=== PATIENT | male | born 1970 | race Caucasian/White ===

== ENCOUNTER 2017-11-29 13:48 | Emergency (ER) | payer BC ==
[2017-11-29] MEDS ORDERED: MORPHINE 4 MG/ML SYR ONE (14:36)
[2017-11-29] MEDS ORDERED: ONDANSETRON 4 MG/2 ML VIAL ONE (14:37)
--- NOTE | 2017-11-29 15:23 | RAD REPORT ---
EXAM DESCRIPTION: CT - Abdomen Pelvis W Contrast - 11/29/2017 3:02 pm CLINICAL HISTORY: Abdominal pain status post fall COMPARISON: none. TECHNIQUE: Computed axial tomography of the abdomen pelvis was obtained. 100 cc Isovue-300 was admin istered intravenously. Oral contrast was not requested which limits evaluation of bowel. All CT scans are performed using dose optimization technique as appropriate and may include automated exposure control or mA/KV adjustment according to patient size. FINDINGS: The liver, spleen, pancreas, adrenal and kidneys appear unremarkable. There is no evidence of diverticulitis. The appendix is normal Bilateral inguinal hernias contain fat. Small umbilical hernia is present. Avulsion fractures involve the left transverse processes of L1, L2, L3 and L4 IMPRESSION: Fractures involving the left transverse processes of L1, L2, L3 and L4
--- NOTE | 2017-11-29 15:36 | ER ---
Nurse's Notes [facility] Name: Morgan Walker Age: 47 yrs Sex: Male : 1970 Arrival Date: 11/29/2017 Time: 13:53 Bed 20 Private MD: Diagnosis: Fracture of first lumbar vertebra-transverse process;Fracture of fourth lumbar vertebra-transverse process;Fracture of second lumbar vertebra-transverse process;Fracture of third lumbar vertebra-transverse process Presentation: 11/29 13:56 Presenting complaint: Patient states: "I slipped on some steps and my back landed on aa5 the steps". Pt c/o left mid-lower back pain. Transition of care: patient was not received from another setting of care. Onset of symptoms was November 29, 2017. Risk Assessment: Do you want to hurt yourself or someone else? Patient reports no desire to harm self or others. Initial Sepsis Screen: Does the patient meet any 2 criteria? No. Patient's initial sepsis screen is negative. Does the patient have a suspected source of infection? No. Patient's initial sepsis screen is negative. Care prior to arrival: None. 13:56 Method Of Arrival: Ambulatory aa5 13:56 Acuity: BERTA 3 aa5 Historical: - Allergies: 13:58 No Known Allergies; aa5 - Home Meds: 13:58 Xarelto 20 mg oral tab 1 tab once daily [Active]; aa5 - PMHx: 13:58 DVT; aa5 - PSHx: 13:58 None; aa5 - Immunization history:: Adult Immunizations up to date. - Social history:: Smoking status: Patient/guardian denies using tobacco. - Ebola Screening: : No symptoms or risks identified at this time. Screenin:07 Abuse screen: Denies threats or abuse. Nutritional screening: No deficits noted. aa5 Tuberculosis screening: No symptoms or risk factors identified. Assessment: 14:00 General: Appears uncomfortable, Behavior is calm, cooperative. Pain: Complains of pain aa5 in left low back and left mid back Pain does not radiate. Pain currently is 5 out of 10 on a pain scale. Quality of pain is described as sharp, Is continuous, Aggravated by increased activity, repositioning. Neuro: Level of Consciousness is awake, alert, obeys commands, Oriented to person, place, time, situation. Cardiovascular: Heart tones S1 S2 present Rhythm is regular. Respiratory: Airway is patent Respiratory effort is even, unlabored, Respiratory pattern is regular, symmetrical. GI: No signs and/or symptoms were reported involving the gastrointestinal system. : No signs and/or symptoms were reported regarding the genitourinary system. EENT: No signs and/or symptoms were reported regarding the EENT system. Derm: Skin is pink, warm \\T\\ dry. Musculoskeletal: Range of motion: intact in all extremities. 15:21 Reassessment: Patient appears in no apparent distress at this time. Patient and/or em family updated on plan of care and expected duration. Pain level reassessed. Patient is alert, oriented x 3, equal unlabored respirations, skin warm/dry/pink. Vital Signs: 13:59 BP 117 / 79; Pulse 66; Resp 16 S; Temp 97.9(TE); Pulse Ox 100% on R/A; Weight 117.93 kg aa5 (R); Height 6 ft. 2 in. (187.96 cm) (R); Pain 5/10; 15:40 BP 115 / 72; Pulse 59; Resp 17; Pulse Ox 99% on R/A; mh5 13:59 Body Mass Index 33.38 (117.93 kg, 187.96 cm) aa5 ED Course: 13:53 Patient arrived in ED. mr 13:57 Triage completed. aa5 13:57 Arm band placed on. aa5 13:57 Patient has correct armband on for positive identification. Placed in gown. Bed in low aa5 position. Call light in reach. Side rails up X 1. 14:01 Ch[facility]C [facility]. kb 14:01 Ramiro Nielsen MD is Attending Physician. kb 14:16 Alexis Merino LVN is Primary Nurse. em 14:16 No provider procedures requiring assistance completed. em 14:30 Inserted saline lock: 20 gauge in right antecubital area, using aseptic technique. mh5 Blood collected. 15:01 CT completed. Patient moved to CT via stretcher. Patient moved back from CT. cw1 15:03 CT Abd/Pelvis - W/Contrast In Process Unspecified. EDMS 16:12 IV discontinued, intact, bleeding controlled, No redness/swelling at site. Pressure ss dressing applied. Administered Medications: 15:11 Drug: morphine 4 mg Route: IVP; Site: left antecubital; hj 16:11 Follow up: Response: No adverse reaction; Pain is decreased ss 15:12 Drug: Zofran 4 mg Route: IVP; Site: right antecubital; hj 16:12 Follow up: Response: No adverse reaction ss 16:07 Drug: [place] 10 mg-325 mg 1 tabs Route: PO; ss 16:12 Follow up: Response: Medication administered at discharge. Outcome: 15:36 Discharge ordered by . kb 16:12 Discharged to home ambulatory, with friend. ss 16:12 Condition: improved 16:12 Discharge instructions given to patient, friend, Instructed on discharge instructions, follow up and referral plans. medication usage, Demonstrated understanding of instructions, follow-up care, medications, Prescriptions given X 2. 16:13 Patient left the ED. Signatures: Dispatcher [employer] EDMS Chante Lopez, ANYA-C COMPOSITE ENGINEER-Tania Hinkle mr Wilber, Alexis, FUR CLIPPER FUR CLIPPER em Anna Antonio, ASHWIN RN aa5 Carine Padilla RN RN Lucille Kwong cw1 Maciel Syed RN RN hj Martinez, Maria 5 Corrections: (The following items were deleted from the chart) 14:00 13:56 Presenting complaint: Patient states: "I slipped on some steps and my back landed aa5 on the steps". Pt c/o lower back pain. aa5 14:03 13:56 Acuity: BERTA 4 aa5 aa5 14:16 14:16 Patient did not have IV access during this emergency room visit. em em 15:12 15:11 Zofran 4 mg IVP in left femoral hj hj
--- NOTE | 2017-11-29 15:36 | EDPHYS ---
Physician Documentation [facility] Name: Morgan Walker Age: 47 yrs Sex: Male : 1970 Arrival Date: 11/29/2017 Time: 13:53 Bed 20 Private MD: ED Physician Ramiro Nielsen HPI: 11/29 15:12 This 47 yrs old Male presents to ER via Ambulatory with complaints of Fall kb Injury. 15:12 Details of fall: The patient fell from an upright position, fell on stairs and hit back kb on the end of one of them. Onset: The symptoms/episode began/occurred just prior to arrival. Associated injuries: The patient sustained left low back and left mid back, abrasion, painful injury. Severity of symptoms: At their worst the symptoms were moderate, severe, in the emergency department the symptoms are unchanged. The patient has not experienced similar symptoms in the past. The patient has not recently seen a physician. Historical: - Allergies: 13:58 No Known Allergies; aa5 - Home Meds: 13:58 Xarelto 20 mg oral tab 1 tab once daily [Active]; aa5 - PMHx: 13:58 DVT; aa5 - PSHx: 13:58 None; aa5 - Immunization history:: Adult Immunizations up to date. - Social history:: Smoking status: Patient/guardian denies using tobacco. - Ebola Screening: : No symptoms or risks identified at this time. ROS: 15:10 Constitutional: Negative for fever, chills, and weight loss, Cardiovascular: Negative kb for chest pain, palpitations, and edema, Respiratory: Negative for shortness of breath, cough, wheezing, and pleuritic chest pain, Abdomen/GI: Negative for abdominal pain, nausea, vomiting, diarrhea, and constipation, : Negative for injury, bleeding, discharge, and swelling, MS/Extremity: Negative for injury and deformity, Skin: Negative for injury, rash, and discoloration, Neuro: Negative for headache, weakness, numbness, tingling, and seizure. 15:10 Back: Positive for pain at rest, of the left mid back. Exam: 15:10 Constitutional: This is a well developed, well nourished patient who is awake, alert, kb and in no acute distress. Head/Face: Normocephalic, atraumatic. Chest/axilla: Normal chest wall appearance and motion. Nontender with no deformity. No lesions are appreciated. Cardiovascular: Regular rate and rhythm with a normal S1 and S2. No gallops, murmurs, or rubs. Normal PMI, no JVD. No pulse deficits. Respiratory: Lungs have equal breath sounds bilaterally, clear to auscultation and percussion. No rales, rhonchi or wheezes noted. No increased work of breathing, no retractions or nasal flaring. Abdomen/GI: Soft, non-tender, with normal bowel sounds. No distension or tympany. No guarding or rebound. No evidence of tenderness throughout. MS/ Extremity: Pulses equal, no cyanosis. Neurovascular intact. Full, normal range of motion. Neuro: Awake and alert, GCS 15, oriented to person, place, time, and situation. Cranial nerves II-XII grossly intact. Motor strength 5/5 in all extremities. Sensory grossly intact. Cerebellar exam normal. Normal gait. 15:10 Back: pain, that is moderate, of the left mid back, ROM is painful. 15:10 Skin: injury, abrasion(s), moderate sized abrasion noted, of the left low back. Vital Signs: 13:59 BP 117 / 79; Pulse 66; Resp 16 S; Temp 97.9(TE); Pulse Ox 100% on R/A; Weight 117.93 kg aa5 (R); Height 6 ft. 2 in. (187.96 cm) (R); Pain 5/10; 15:40 BP 115 / 72; Pulse 59; Resp 17; Pulse Ox 99% on R/A; mh5 13:59 Body Mass Index 33.38 (117.93 kg, 187.96 cm) aa5 MDM: 14:02 Patient medically screened. kb 15:10 Data reviewed: vital signs, nurses notes. Data interpreted: Pulse oximetry: on room air kb is 100 %. Interpretation: normal. 15:33 Counseling: I had a detailed discussion with the patient and/or guardian regarding: the kb historical points, exam findings, and any diagnostic results supporting the discharge/admit diagnosis, radiology results, the need for outpatient follow up, a family practitioner, a neurosurgeon, to return to the emergency department if symptoms worsen or persist or if there are any questions or concerns that arise at home. 11/29 14:02 Order name: Creatinine for Radiology; Complete Time: 15:49 kb 11/29 14:02 Order name: CT Abd/Pelvis - W/Contrast; Complete Time: 15:25 kb Administered Medications: 15:11 Drug: morphine 4 mg Route: IVP; Site: left antecubital; hj 16:11 Follow up: Response: No adverse reaction; Pain is decreased ss 15:12 Drug: Zofran 4 mg Route: IVP; Site: right antecubital; hj 16:12 Follow up: Response: No adverse reaction ss 16:07 Drug: Ros[place] 10 mg-325 mg 1 tabs Route: PO; ss 16:12 Follow up: Response: Medication administered at discharge. Disposition: 11/29/17 15:36 Discharged to Home. Impression: Fracture of first lumbar vertebra - transverse process, Fracture of fourth lumbar vertebra - transverse process, Fracture of second lumbar vertebra - transverse process, Fracture of third lumbar vertebra - transverse process. - Condition is Stable. - Discharge Instructions: Transverse Process Fracture. - Prescriptions for Tylenol- Codeine #3 300-30 mg Oral Tablet - take 2 tablets by ORAL route every 6 hours As needed; 20 tablet. Cyclobenzaprine 10 mg Oral Tablet - take 1 tablet by ORAL route every 8 hours As needed; 30 tablet. - Medication Reconciliation Form, Thank You Letter, Antibiotic Education, Prescription Opioid Use form. - Follow up: Emergency Department; When: As needed; Reason: Worsening of condition. Follow up: Private Physician; When: 2 - 3 days; Reason: Recheck today's complaints, Continuance of care, Re-evaluation by your physician. Addendum: 12/03/2017 07:07 Co-signature as Attending Physician, Ramiro Nielsen MD I agree with the assessment and k dr plan of care. Signatures: Dispatcher [employer] EDMS Chante Lopez, SHOW HOST-C SHOW HOST-Ckb Ramiro Nielsen MD MD [facility] Anna Antonio RN RN aa5 Carine Padilla RN RN ss Maciel Syed RN RN hj Corrections: (The following items were deleted from the chart) 11/29 15:50 15:36 11/29/2017 15:36 Discharged to Home. Impression: Fracture of first lumbar kb vertebra; Fracture of fourth lumbar vertebra; Fracture of second lumbar vertebra; Fracture of third lumbar vertebra. Condition is Stable. Forms are Medication Reconciliation Form, Thank You Letter, Antibiotic Education, Prescription Opioid Use. kb 15:50 15:50 11/29/2017 15:36 Discharged to Home. Impression: Fracture of first lumbar kb vertebra - transverse process; Fracture of fourth lumbar vertebra - transverse process; Fracture of second lumbar vertebra - transverse process; Fracture of third lumbar vertebra - transverse process. Condition is Stable. Forms are Medication Reconciliation Form, Thank You Letter, Antibiotic Education, Prescription Opioid Use. kb 16:13 15:50 11/29/2017 15:36 Discharged to Home. Impression: Fracture of first lumbar ss vertebra - transverse process; Fracture of fourth lumbar vertebra - transverse process; Fracture of second lumbar vertebra - transverse process; Fracture of third lumbar vertebra - transverse process. Condition is Stable. Forms are Medication Reconciliation Form, Thank You Letter, Antibiotic Education, Prescription Opioid Use. Follow up: Emergency Department; When: As needed; Reason: Worsening of condition. Follow up: Private Physician; When: 2 - 3 days; Reason: Recheck today's complaints, Continuance of care, Re-evaluation by your physician. kb
[2017-11-29] MEDS ORDERED: HYDROCODONE/APAP 10/325 TAB ONE (16:10)
== END 2017-11-29 16:13 | disposition home or self-care (01) ==
LOC: ER 13:48
DX: S32.019A Unspecified fracture of first lumbar vertebra, initial encounter for closed fracture (principal); S32.049A Unspecified fracture of fourth lumbar vertebra, initial encounter for closed fracture; S32.029A Unspecified fracture of second lumbar vertebra, initial encounter for closed fracture; S32.039A Unspecified fracture of third lumbar vertebra, initial encounter for closed fracture; W10.8XXA Fall (on) (from) other stairs and steps, initial encounter; Y93.9 Activity, unspecified; Y92.9 Unspecified place or not applicable; Z79.01 Long term (current) use of anticoagulants; Z86.718 Personal history of other venous thrombosis and embolism
CPT/HCPCS: 36415; 74177; 99284; J2405; Q9967

== ENCOUNTER 2020-06-14 17:45 | Emergency (ER) | payer BC, OTHER ==
--- OUTSIDE RECORDS SUMMARY | 2020-06-14 17:48 | XMS REPORT | Continuity of Care Document ---
:1970 Author Organization [facility] t Address [address] [place] [address] Care Team Providers Name Role Phone LEV Attending Clinician Unavailable FUCHS Admitting Clinician Unavailable Problems Condition Condition Condition Status Onset Resolution Last Treating Co mments Source Name Details Category Date Date Treatment Clinician Date Deep Deep Problem Active [facility] venous Venous 09-21 Family thrombosis Thrombosis 00:00: Pr actic of lower of Lower 00 e extremity Extremity Allergies, Adverse Reactions, Alerts This patient has no known allergies or adverse reactions. Social History Smoking Status Start Date Stop Date Source Never Smoker [facility] Medications Ordered Filled Start Stop Current Ordering Indication Dosage Frequency Signature Comments Components Source Medication Medication Date Date Medication? Clinician (SIG) Name Name benzonatate benzonatate No 1capsul TID benzonatat [facility] 200 mg 200 mg e(s) e 200 mg Family capsule capsule capsule Practi c Take 1 Take 1 Take 1 e capsule 3 capsule 3 capsule 3 times a day times a day times a by oral by oral day by route. route. oral route. valacyclovi valacyclovi No valacyclov [facility] r 1 gram r 1 gram ir 1 gram Fa [facility] tablet Take tablet Take tablet [facility] 1 tablet 3 1 tablet 3 Take 1 e times a day times a day tablet 3 by oral by oral times a route. route. day by oral route. Xarelto 20 Xarelto 20 No Xarelto 20 [facility] mg tablet mg tablet mg tablet Family Take 1 Take 1 Take 1 [facility] tablet tablet tablet e every day every day every day by oral by oral by oral route for route for route for 30 days. 30 days. 30 days. Zithromax Zithromax No Zithromax [facility] Z-Ti 250 Z-Ti 250 Z-Ti 250 Family mg tablet mg tablet mg tablet [facility] TAKE 2 TAKE 2 TAKE 2 e TABLETS TABLETS TABLETS (500 MG) BY (500 MG) BY (500 MG) ORAL ROUTE ORAL ROUTE BY ORAL ONCE DAILY ONCE DAILY ROUTE ONCE FOR 1 DAY FOR 1 DAY DAILY FOR THEN 1 THEN 1 1 DAY THEN TABLET (250 TABLET (250 1 TABLET MG) BY ORAL MG) BY ORAL (250 MG) ROUTE ONCE ROUTE ONCE BY ORAL DAILY FOR 4 DAILY FOR 4 ROUTE ONCE DAYS DAYS DAILY FOR 4 DAYS Vital Signs Vital Name Observation Time Observation Value Comments Source BP Diastolic 2019-01-26 00:00:00 52 mm[Hg] [facility] Height 2019-01-26 00:00:00 74 [in_i] [facility] BMI (Body Mass 2019-01-26 00:00:00 32.6 kg/m2 [facility] BP Systolic 2019-01-26 00:00:00 114 mm[Hg] [facility] Body Weight 2019-01-26 00:00:00 253.6 [lb_av] [facility] BP Diastolic 2018-09-14 00:00:00 80 mm[Hg] [facility] Height 2018-09-14 00:00:00 74 [in_i] [facility] BMI (Body Mass 2018-09-14 00:00:00 33.1 kg/m2 [facility] BP Systolic 2018-09-14 00:00:00 130 mm[Hg] [facility] Body Weight 2018-09-14 00:00:00 258 [lb_av] [facility] BP Diastolic 2018-08-24 00:00:00 88 mm[Hg] [facility] Height 2018-08-24 00:00:00 74 [in_i] [facility] BMI (Body Mass 2018-08-24 00:00:00 33.4 kg/m2 [facility] BP Systolic 2018-08-24 00:00:00 120 mm[Hg] [facility] Body Weight 2018-08-24 00:00:00 260 [lb_av] [facility] BP Diastolic 2018-08-16 00:00:00 76 mm[Hg] [facility] Height 2018-08-16 00:00:00 74 [in_i] [facility] BMI (Body Mass 2018-08-16 00:00:00 33.8 kg/m2 [facility] BP Systolic 2018-08-16 00:00:00 118 mm[Hg] [facility] Body Weight 2018-08-16 00:00:00 263 [lb_av] [facility] Procedures Procedure Date / Time Performed Performing Clinician Sourc e electrocardiogram 2018-09-14 00:00:00 [facility] Encounters Start End Encounter Admission Attending Care Care Encounter Source Date/Time Date/Time Type Type Clinicians Facility Department ID 2020-05-23 2020-05-25 Outpatient [facility] [id number] [place] [address] 00:00:00 00:00:00 KRISTINAABDOUL [address] 2019-01-26 2019-01-26 [facility] [place] - [id number] [facility] [place] 00:00:00 00:00:00 Ashtyn Antunez MD: [id number] [facility] [address] [facility], [place] [address] , Ph. 2018-09-14 2018-09-14 Joe Saleh [facility] [place] - [id number] [facility] 00:00:00 00:00:00 Ashtyn Antunez MD: [id number] [facility] [address], [place] [address] , Ph. 2018-08-24 2018-08-24 Joe Slaeh [facility] [place] - [id number] [facility] 00:00:00 00:00:00 Ashtyn Antunez MD: [id number] [facility] [address], [place] [address] , Ph. 2018-08-16 2018-08-16 Joe Slaeh [facility] [place] - [id number] [facility] 00:00:00 00:00:00 Ashtyn Antunez MD: [id number] [facility] [address], [place] [address] , Ph. Results This patient has no known results.
--- NOTE | 2020-06-14 20:35 | RAD REPORT ---
EXAM DESCRIPTION: US - Extremity Venous Uni Ltd - 06/14/2020 7:56 pm CLINICAL HISTORY: Left arm pain and swelling COMPARISON: None. TECHNIQUE: Real-time sonographic evaluation of the left upper extremity deep venous systems was perf ormed. FINDINGS: Normal compressibility, flow augmentation, phasic flow and spontaneous flow are identified in the left upper extremity deep venous system. No intraluminal filling defects seen. Internal jugul ar and subclavian veins are normal as well. Echogenic thrombus is present in the left basilic vein. There is no compressibility the pain and teresa le or no blood flow on Doppler evaluation. IMPRESSION: Left upper extremity superficial venous thrombosis in the basilic vein. No DVT in the left upper extremity.
[2020-06-14 21:53] LABS: Absolute Lymphocytes (CBC) 2.9 K/uL (0.7-4.9); Basophils % 0.8 % (0-1.3); Hematocrit 44.3 % (39.6-49.0); Lymphocytes % 43.7 % (15.3-44.8); MPV 7.9 fL (7.6-11.3); RBC Red Blood Cell Count 4.84 M/uL (4.33-5.43)
[2020-06-14 22:01] LABS: Alkaline Phosphatase ND U/L (45-117); Protime INR 0.9
[2020-06-14 22:05] LABS: ALT/SGPT 47 U/L (12-78); AST/SGOT 26 U/L (15-37); Albumin 3.8 g/dL (3.4-5.0); BUN Blood Urea Nitrogen 12 mg/dL (7-18); Bicarbonate 29 mmol/L (21-32); Bilirubin Direct 0.1 mg/dL (0-0.2); Bilirubin Total 0.5 mg/dL (0.2-1.0); Glucose Level 81 mg/dL (74-106); Potassium 3.7 mmol/L (3.5-5.1); Protein, Total 6.9 g/dL (6.4-8.2); Sodium Level 142 mmol/L (136-145)
--- NOTE | 2020-06-14 22:32 | ER ---
Nurse's Notes [facility] Name: Morgan Walker Age: 49 yrs Sex: Male : 1970 Arrival Date: 06/14/2020 Time: 17:52 Bed 23 Private MD: Diagnosis: Superficial Vein Thrombosis-Left Upper Extremity Presentation: 06/14 18:44 Chief complaint: Patient states: I think I have a blood clot on my L arm. Was admitted ca1 in an ER in [place] 05/23/2020. Had an IV on the L AC that they could not draw blood from. Noticed pain and tenderness. on L upper inner arm on 05/27/2020. Noticed redness and swelling yesterday on inner L upper and inner L forearm. HX of DVT on R leg. Coronavirus screen: Client denies travel out of the [place] in the last 14 days. At this time, the client does not indicate any symptoms associated with coronavirus-19. Ebola Screen: Patient negative for fever greater than or equal to 101.5 degrees Fahrenheit, and additional compatible Ebola Virus Disease symptoms Patient denies exposure to infectious person. Patient denies travel to an Ebola-affected area in the 21 days before illness onset. No symptoms or risks identified at this time. Initial Sepsis Screen: Does the patient meet any 2 criteria? No. Patient's initial sepsis screen is negative. Does the patient have a suspected source of infection? No. Patient's initial sepsis screen is negative. Risk Assessment: Do you want to hurt yourself or someone else? Patient reports no desire to harm self or others. Onset of symptoms was June 14, 2020. 18:44 Method Of Arrival: Ambulatory ca1 18:44 Acuity: BERTA 4 ca1 Historical: - Allergies: 18:50 No Known Allergies; ca1 - Home Meds: 18:50 Lipitor Oral [Active]; ca1 - PMHx: 18:50 DVT; High Cholesterol; ca1 - PSHx: 18:50 None; ca1 - Immunization history:: Flu vaccine is not up to date. - Social history:: Smoking status: Patient reports the use of cigarette tobacco products, cigars. Vital Signs: 18:44 BP 132 / 95; Pulse 70; Resp 16 S; Temp 97.8(TE); Pulse Ox 99% on R/A; Weight 117.93 kg ca1 (R); Height 6 ft. 2 in. (187.96 cm) (R); Pain 4/10; 18:44 Body Mass Index 33.38 (117.93 kg, 187.96 cm) ca1 ED Course: 17:52 Patient arrived in ED. ds1 18:49 Triage completed. ca1 18:50 Arm band placed on right wrist. ca1 19:09 Curtis Solano MD is Attending Physician. 7 19:19 Ladan Palacios, RN is Primary Nurse. dm5 19:56 US Extremity Venous Unilateral Ltd In Process Unspecified. EDMS Administered Medications: 22:35 Drug: Xarelto 20 mg Route: PO; dm5 Outcome: 22:31 Discharge ordered by . 7 22:39 Patient left the ED. dm5 Signatures: Dispatcher [employer] EDMS Ladan Palacios, RN RN dm5 Andreina Barrett ds1 Lisa Gil RN RN ca1 Curtis Solano MD MD [facility]
--- NOTE | 2020-06-14 22:33 | EDPHYS ---
Physician Documentation [facility] Name: Morgan Walker Age: 49 yrs Sex: Male : 1970 Arrival Date: 06/14/2020 Time: 17:52 Bed 23 Private MD: ED Physician Curtis Solano HPI: 06/14 19:19 This 49 yrs old Male presents to ER via Ambulatory with complaints of Arm mh7 Pain. 19:20 The patient or guardian complains of pain, that is acute, swelling. The complaints mh7 affect the palmar aspect of left forearm. Context: The problem was sustained at an unknown location, resulted from IV placement. Onset: The symptoms/episode began/occurred 2 week(s) ago. Treatment prior to arrival includes: no previous treatment. Modifying factors: The symptoms are alleviated by nothing. the symptoms are aggravated by bending arm. Associated signs and symptoms: Pertinent positives: erythema, pain, swelling, warmth, Pertinent negatives: decreased range of motion, deformity, fever, nausea, numbness, tingling, vomiting, weakness. Severity of symptoms: At their worst the symptoms were moderate, yesterday, in the emergency department the symptoms are unchanged. DVT right leg 2 years ago. Patient states that he has had pain in left forearm for 2 weeks after IV placement at an outside hospital. He has had swelling, and mild redness develop to the area since then. Denies any chest pain, SOB, fever, nausea, vomiting, or other complaints.. Historical: - Allergies: 18:50 No Known Allergies; ca1 - Home Meds: 18:50 Lipitor Oral [Active]; ca1 - PMHx: 18:50 DVT; High Cholesterol; ca1 - PSHx: 18:50 None; ca1 - Immunization history:: Flu vaccine is not up to date. - Social history:: Smoking status: Patient reports the use of cigarette tobacco products, cigars. ROS: 19:20 Constitutional: Negative for fever, chills, and weight loss, Eyes: Negative for injury, mh7 pain, redness, and discharge, ENT: Negative for injury, pain, and discharge, Neck: Negative for injury, pain, and swelling, Cardiovascular: Negative for chest pain, palpitations, and edema, Respiratory: Negative for shortness of breath, cough, wheezing, and pleuritic chest pain, Abdomen/GI: Negative for abdominal pain, nausea, vomiting, diarrhea, and constipation, Back: Negative for injury and pain, : Negative for injury, bleeding, discharge, and swelling, Neuro: Negative for headache, weakness, numbness, tingling, and seizure, Psych: Negative for depression, anxiety, suicide ideation, homicidal ideation, and hallucinations, Allergy/Immunology: Negative for hives, rash, and allergies, Endocrine: Negative for neck swelling, polydipsia, polyuria, polyphagia, and marked weight changes, Hematologic/Lymphatic: Negative for swollen nodes, abnormal bleeding, and unusual bruising. Exam: 19:20 Constitutional: This is a well developed, well nourished patient who is awake, alert, mh7 and in no acute distress. Head/Face: Normocephalic, atraumatic. Eyes: Pupils equal round and reactive to light, extra-ocular motions intact. Lids and lashes normal. Conjunctiva and sclera are non-icteric and not injected. Cornea within normal limits. Periorbital areas with no swelling, redness, or edema. Neck: Trachea midline, no thyromegaly or masses palpated, and no cervical lymphadenopathy. Supple, full range of motion without nuchal rigidity, or vertebral point tenderness. No Meningismus. Chest/axilla: Normal chest wall appearance and motion. Nontender with no deformity. No lesions are appreciated. Cardiovascular: Regular rate and rhythm with a normal S1 and S2. No gallops, murmurs, or rubs. Normal PMI, no JVD. No pulse deficits. Respiratory: Lungs have equal breath sounds bilaterally, clear to auscultation and percussion. No rales, rhonchi or wheezes noted. No increased work of breathing, no retractions or nasal flaring. Abdomen/GI: Soft, non-tender, with normal bowel sounds. No distension or tympany. No guarding or rebound. No evidence of tenderness throughout. Back: No spinal tenderness. No costovertebral tenderness. Full range of motion. 19:20 Neuro: Awake and alert, GCS 15, oriented to person, place, time, and situation. Cranial nerves II-XII grossly intact. Motor strength 5/5 in all extremities. Sensory grossly intact. Cerebellar exam normal. Normal gait. Psych: Awake, alert, with orientation to person, place and time. Behavior, mood, and affect are within normal limits. 19:20 Musculoskeletal/extremity: Extremities: noted in the palmar aspect of left forearm: erythema, pain, swelling, tenderness, ROM: intact in all extremities, Circulation is intact in all extremities. Pulses: are normal with no appreciated deficits, Perfusion: the patient is normally perfused throughout, Perfusion: the extremity is normally perfused throughout, Calf tenderness, is absent, Edema, is not appreciated, Sensation intact. Compartment Syndrome exam of affected extremity: is normal. no numbness, no tingling, no sensation deficit, no palor, no weak pulses, Joints: All joints appear normal with full range of motion. Weight bearing: able to fully bear weight, without difficulty, Tendon exam: specific tendon testing normal through active and passive range of motion DVT Exam: negative Homans' sign noted on exam, no appreciated bluish discoloration, pain, that is mild, of the palmar aspect of left forearm, swelling, that is mild, of the palmar aspect of left forearm, tenderness, that is mild, of the palmar aspect of left forearm, erythema, that is mild, of the palmar aspect of left forearm, increased warmth, that is mild, of the palmar aspect of left forearm, Calves: are non-tender, have equal circumference. Vital Signs: 18:44 BP 132 / 95; Pulse 70; Resp 16 S; Temp 97.8(TE); Pulse Ox 99% on R/A; Weight 117.93 kg ca1 (R); Height 6 ft. 2 in. (187.96 cm) (R); Pain 4/10; 18:44 Body Mass Index 33.38 (117.93 kg, 187.96 cm) ca1 MDM: 22:24 Differential diagnosis: Cellulitis, DVT, Thrombophlebitis. Data reviewed: vital signs, [facility] nurses notes, lab test result(s), CBC, electrolytes. Data interpreted: Pulse oximetry: on room air is 99 %. Interpretation: normal. Counseling: I had a detailed discussion with the patient and/or guardian regarding: the historical points, exam findings, and any diagnostic results supporting the discharge/admit diagnosis, the presence of at least one elevated blood pressure reading (>120/80) during this emergency department visit, lab results, the need for outpatient follow up, to return to the emergency department if symptoms worsen or persist or if there are any questions or concerns that arise at home. Response to treatment: the patient's symptoms have markedly improved after treatment. Physician consultation:. Refusal of service: The patient/guardian displays adequate decision making capability and despite a detailed discussion of alternatives, benefits, risks, and consequences refuses: Pain medication. ED course: Discussed with Dr. Barnes ([facility]) who is communications billing analyst for patient's Dr. nAtunez. Dr. Barnes reviewed patient medical records in conjunction with today's evaluation and test results recommended patient be started on Xarelto 20 mg PO daily again. Patient has a follow up appointment with Dr. Antunez tomorrow. This information was discussed with the patient who was agreeable with treatment plan.. 22:31 Patient medically screened. [facility] 06/14 21:21 Order name: CBC with Diff [facility] 06/14 21:21 Order name: Basic Metabolic Panel [facility] 06/14 21:21 Order name: LFT's [facility] 06/14 21:21 Order name: Protime (+inr); Complete Time: 22:17 [facility] 06/14 21:21 Order name: Ptt, Activated; Complete Time: 22:17 [facility] 06/14 21:21 Order name: CBC with Automated Diff; Complete Time: 22:17 [facility] 06/14 18:54 Order name: US Extremity Venous Unilateral Ltd; Complete Time: 20:46 kb 06/14 21:21 Order name: Basic Metabolic Panel; Complete Time: 22:17 EDMS 06/14 21:21 Order name: Liver (Hepatic) Function; Complete Time: 22:17 EDMS Administered Medications: 22:35 Drug: Xarelto 20 mg Route: PO; dm5 Disposition: 06/14/20 22:31 Discharged to Home. Impression: Superficial Vein Thrombosis-Left Upper Extremity. - Condition is Stable. - Discharge Instructions: Phlebitis, [id number], Venous Thromboembolism Prevention. - Prescriptions for Xarelto 20 mg Oral Tablet - take 1 tablet by ORAL route once daily; 21 tablet. - Medication Reconciliation Form, Thank You Letter, Antibiotic Education, Prescription Opioid Use form. - Follow up: Private Physician; When: Tomorrow; Reason: Worsening of condition, Recheck today's complaints, Continuance of care, Re-evaluation by your physician. - Problem is new. - Symptoms have improved. Signatures: Dispatcher [employer] EDRenu Montezna, ASHWIN RN dm5 Jeffery, ASHWIN Gonzalez RN ca1 Curtis Solano MD MD mh7 Corrections: (The following items were deleted from the chart) 22:32 22:31 06/14/2020 22:31 Discharged to Home. Impression: Superficial Thrombosis-Left mh7 Upper Extremity. Condition is Stable. Forms are Medication Reconciliation Form, Thank You Letter, Antibiotic Education, Prescription Opioid Use. Follow up: Private Physician; When: Tomorrow; Reason: Worsening of condition, Recheck today's complaints, Continuance of care, Re-evaluation by your physician. Problem is new. Symptoms have improved. [facility] 22:39 22:32 06/14/2020 22:31 Discharged to Home. Impression: Superficial Vein Thrombosis-Left dm5 Upper Extremity. Condition is Stable. Forms are Medication Reconciliation Form, Thank You Letter, Antibiotic Education, Prescription Opioid Use. Follow up: Private Physician; When: Tomorrow; Reason: Worsening of condition, Recheck today's complaints, Continuance of care, Re-evaluation by your physician. Problem is new. Symptoms have improved. 7
[2020-06-14 22:46] VITALS: BP 132/95; TEMP 97.8; O2SAT 99
[2020-06-14] MEDS ORDERED: RIVAROXABAN 20 MG TABLET PO ONE (22:47)
== END 2020-06-14 22:39 | disposition home or self-care (01) ==
LOC: ER 17:45
DX: I82.612 Acute embolism and thrombosis of superficial veins of left upper extremity (principal); E78.00 Pure hypercholesterolemia, unspecified; F17.290 Nicotine dependence, other tobacco product, uncomplicated; Z79.01 Long term (current) use of anticoagulants; Z86.718 Personal history of other venous thrombosis and embolism
CPT/HCPCS: 36415; 80048; 80076; 85025; 85610; 85730; 93971; 99283